=== PATIENT | female | born 1940 | race Caucasian/White ===

== ENCOUNTER 2016-07-22 09:48 | Emergency (ER) | payer OTHER, MEDICAID ==
--- NOTE | ~2016-07-22 | CR141 ---
[facility] A Service [facility] RADIOLOGY TEXT RESULTS PATIENT: LION ALCAZAR LOCATION: SED : 42 UNIT #: [id number] AGE: [address]: Mikhail Ramirez SEX: F ORDER DR: [id number] [place] [id number] E MR#: [id number] #: [id number] NAME: LION ALCAZAR : 1940 SEX: F STUDY DATE/TIME: 07/22/2016 10:39 UNIT: SED ROOM: STUDY DESCRIPTION: CR Hand Min 3 Views Lt Attending Physician: Mikhail Ramirez P.A.-C. Ordering Physician: Mikhail Ramirez P.A.-C. Primary Care Physician: Chelsie Galvez M.D. MEDICAL IMAGING REPORT This report is preliminary unless electronic signature is present. EXAM Three views left hand. DATE 07/22/2016 HISTORY Evaluate for foreign body. Laceration to the third and fourth finger tips this morning. Cut with hedge trimmers. COMPARISON None FINDINGS There is mild cortical avulsion injury involving the volar tip of the distal phalanx of the left third finger. Soft tissue swelling is seen at the tips of the third and fourth fingers without evidence of retained radiopaque foreign body. No joint dislocation. Mild generalized osteopenia and osteoarthritic change. IMPRESSION 1. Tiny cortical avulsion type injury involving the volar tip of the distal phalanx of the left third finger. 2. Soft tissue swelling at the tips of the third and fourth fingers. 3. No retained radiopaque foreign body. 4. Osteopenia and mild generalized osteoarthritic changes. Dictated by... Marion Perdomo M.D. [facility] A Service [facility] RADIOLOGY TEXT RESULTS PATIENT: LION ALCAZAR LOCATION: SED : 41 UNIT #: [id number] AGE: [address]: Lapsley,Mikhail H PAC SEX: F ORDER DR: THIS IS AN ELECTRONICALLY VERIFIED REPORT Marion Perdomo M.D. at 07/23/2016 6:13 AM JOI/brice TD: 07/22/2016 12:14 JOB #: [id number] MEDICAL IMAGING REPORT Page 1 of 1
[~2016-07-22 09:48] MED LIST: ACETAMINOPHEN PO; AMLODIPINE BESYL5 MG PO; ASPIRIN PO; ASPIRIN1 GM; ASPIRIN81 M1 PO; ASPIRIN81 M2 PO; AVAPRO PO; BENEFIBER1 PKT PO; CALTRATE 600+D PO; CERTAGEN PO; CETIRIZINE HCL10 MG PO; CULTURELLE; CULTURELLE CAP1 EACH PO; DIOVAN160 MG PO; DOXYCYCLINE PO; EVISTA60 M1 PO; FLAGYL PO; FLONASE 0.05% N16 G1; FLONASE16 GM; GLUCOSAMINE/MSM; HYDROCHLOROTH12.5 MG PO; IBUPROFEN PO; LEVAQUIN PO; LEVOTHYROXINE100 MCG PO; LIPITOR PO; LIPITOR20 MG PO; LORTAB 7.5-5001 TAB PO; LOSARTAN POTAS100 MG PO; MULTI-DAY VITAM1 TAB PO; NASONEX17 GM; NEXIUM PO; NORCO 5/325 TAB1 TAB PO; PREDNISONE PO; PREVACID PO; SYNTHROID PO; SYNTHROID75 MCG PO; VICODIN 5/500 T1 TAB PO; VITAMIN D-32000 UNI1 PO; [UNRECOGNIZED DRUG - REMARK]
== END 2016-07-22 11:27 | disposition home or self-care (01) ==
LOC: SED 09:48
DX: S61.213A Laceration without foreign body of left middle finger without damage to nail, initial encounter (principal); I10 Essential (primary) hypertension; J45.909 Unspecified asthma, uncomplicated; E78.00 Pure hypercholesterolemia, unspecified; Z23 Encounter for immunization; Z79.82 Long term (current) use of aspirin; Z79.899 Other long term (current) drug therapy; Z88.5 Allergy status to narcotic agent; W29.3XXA Contact with powered garden and outdoor hand tools and machinery, initial encounter; Y92.9 Unspecified place or not applicable
CPT/HCPCS: 29130; 73130; 90471; 90715; 99283